=== PATIENT | female | born 1990 | race Caucasian/White ===

== ENCOUNTER 2016-04-24 11:10 | Emergency (ER) | payer OTHER, MEDICAID ==
[~2016-04-24] VITALS: Ht 154.9 cm; Wt 120.0 kg
[~2016-04-24 11:10] MED LIST: PROT40TA PO; [UNRECOGNIZED DRUG - OTHER] PO
[2016-04-24 11:12] VITALS: BP 170/96; PULSE 90; RESP 20; TEMP 98.6; O2SAT 94
--- NOTE | 2016-04-24 12:59 | PD ---
HPI Chief Complaint: GI Complaint Time Seen by Provider: 12:59 Travel History International Travel<30 days: No Contact w/Intl Traveler<30days: No Traveled to known affect area: No History of Present Illness HPI 26 year-old female history of PCO S presents to emergency department for evaluation of abdominal pain. States that it is epigastric in nature. It has been going on for a week. She has been nauseous at times without vomiting. She has also had some diarrhea. Denies any fever or chills. No chest tightness. No difficulty breathing. States her last menstrual cycle is unknown due to irregular menses. She has no other symptoms to report. PFSH Past Medical History Anemia: Yes Asthma: Yes Blood Disorders: No Heart Rhythm Problems: No Cancer: No Cardiovascular Problems: No High Cholesterol: Yes Chemotherapy: No Chest Pain: No Congestive Heart Failure: No COPD: No Cerebrovascular Accident: No Diabetes: Yes Diminished Hearing: No Endocrine: No Gastrointestinal Disorders: Yes (gallbladder removed 2007) GERD: Yes Genitourinary: No Headaches: Yes Hypertension: No Implanted Vascular Access Dvce: No Musculoskeletal: No Neurologic: No Psychiatric: No Reproductive: No Respiratory: Yes (ASTHMA) Myocardial Infarction: No Pneumonia: Yes (?) Radiation Therapy: No Renal Failure: No Thyroid Disease: No Ulcer: No LMP: 02/02/16 HX PCOS : 3 Para: 3 Tubal Ligation: Yes Past Surgical History Section: Yes (X 3) Cholecystectomy: Yes Tonsillectomy: Yes Other Surgery: Yes (two c-sections, gallbladder, tonsils) Social History Alcohol Use: No Tobacco Use: No Substance Use: No Allergies-Medications (Allergen,Severity, Reaction): Coded Allergies: Aspirin (Verified Allergy, Severe, 04/24/16) itching Reported Meds & Prescriptions Reported Meds & Active Scripts Active Protonix (Pantoprazole Sodium) 40 Mg Tab 40 Mg PO DAILY 30 Days Reported [enepresse] 1 Tab PO DAILY Review of Systems Except as stated in HPI: all other systems reviewed are Neg Physical Exam Narrative GENERAL: Obese female patient, ambulatory no acute distress SKIN: Warm and dry. HEAD: Normocephalic. Atraumatic EYES: No scleral icterus. No injection or drainage. NECK: Supple, trachea midline. No JVD or lymphadenopathy. CARDIOVASCULAR: Regular rate and rhythm without murmurs, gallops, or rubs. RESPIRATORY: Breath sounds diminished, likely due to girth, equal bilaterally. No accessory muscle use. GASTROINTESTINAL: Abdomen soft, non-tender, nondistended. MUSCULOSKELETAL: No cyanosis, or edema. BACK: Nontender without obvious deformity. No CVA tenderness. Data Data Last Documented VS Vital Signs Date Time Temp Pulse Resp B/P Pulse Ox O2 Delivery O2 Flow Rate FiO2 04/24/16 11:12 98.6 90 20 170/96 94 Room Air Orders Beta Hcg (Quant/Titer) (04/24/16 12:58) Complete Blood Count With Diff (04/24/16 12:58) Comprehensive Metabolic Panel (04/24/16 12:58) Lipase (04/24/16 12:58) Prothrombin Time / Inr (Pt) (04/24/16 12:58) Act Partial Throm Time (Ptt) (04/24/16 12:58) Urinalysis - C+S If Indicated (04/24/16 12:58) Labs Laboratory Tests Test 04/24/16 04/24/16 13:01 13:19 Urine Color YELLOW Urine Turbidity HAZY Urine pH 6.0 Urine Specific [place] 1.024 Urine Protein TRACE mg/dL Urine Glucose (UA) NEG mg/dL Urine Ketones NEG mg/dL Urine Occult Blood MOD Urine Nitrite NEG Urine Bilirubin NEG Urine Urobilinogen LESS THAN 2.0 MG/DL Urine Leukocyte Esterase MOD Urine RBC 47 /hpf Urine WBC 4 /hpf Urine Squamous Epithelial 5 /hpf Cells Urine Mucus FEW /lpf Microscopic Urinalysis Comment CULT NOT INDICATED White Blood Count 13.7 TH/MM3 Red Blood Count 4.52 MIL/MM3 Hemoglobin 13.5 GM/DL Hematocrit 39.5 % Mean Corpuscular Volume 87.4 FL Mean Corpuscular Hemoglobin 29.9 PG Mean Corpuscular Hemoglobin 34.1 % Concent Red Cell Distribution Width 13.7 % Platelet Count 320 TH/MM3 Mean Platelet Volume 7.6 FL Neutrophils (%) (Auto) 76.9 % Lymphocytes (%) (Auto) 18.8 % Monocytes (%) (Auto) 3.0 % Eosinophils (%) (Auto) 0.2 % Basophils (%) (Auto) 1.1 % Neutrophils # (Auto) 10.5 TH/MM3 Lymphocytes # (Auto) 2.6 TH/MM3 Monocytes # (Auto) 0.4 TH/MM3 Eosinophils # (Auto) 0.0 TH/MM3 Basophils # (Auto) 0.2 TH/MM3 CBC Comment DIFF FINAL Differential Comment Prothrombin Time 10.6 SEC Prothromb Time International 1.0 RATIO Ratio Activated Partial 28.2 SEC Thromboplast Time Sodium Level 140 MEQ/L Potassium Level 4.0 MEQ/L Chloride Level 108 MEQ/L Carbon Dioxide Level 21.3 MEQ/L Anion Gap 11 MEQ/L Blood Urea Nitrogen 8 MG/DL Creatinine 0.81 MG/DL Estimat Glomerular Filtration 84 ML/MIN Rate Random Glucose 92 MG/DL Calcium Level 8.6 MG/DL Total Bilirubin 0.3 MG/DL Aspartate Amino Transf 17 U/L (AST/SGOT) Alanine Aminotransferase 30 U/L (ALT/SGPT) Alkaline Phosphatase 101 U/L Total Protein 8.3 GM/DL Albumin 3.8 GM/DL Lipase 96 U/L Human Chorionic Gonadotropin, LESS THAN 1 Quant MIU/ML MDM Medical Decision Making Medical Screen Exam Complete: Yes Emergency Medical Condition: Yes Medical Record Reviewed: Yes Differential Diagnosis Gastritis versus gastroenteritis versus viral syndrome versus indigestion Narrative Course 26 year-old female presents to emergency department for evaluation. Workup was initiated in triage. Once a medical bed becomes available, patient will be transferred and care seen by that provider. Laboratory Tests Test 04/24/16 04/24/16 13:01 13:19 Urine Color YELLOW Urine Turbidity HAZY Urine pH 6.0 Urine Specific [place] 1.024 Urine Protein TRACE mg/dL Urine Glucose (UA) NEG mg/dL Urine Ketones NEG mg/dL Urine Occult Blood MOD Urine Nitrite NEG Urine Bilirubin NEG Urine Urobilinogen LESS THAN 2.0 MG/DL Urine Leukocyte Esterase MOD Urine RBC 47 /hpf Urine WBC 4 /hpf Urine Squamous Epithelial 5 /hpf Cells Urine Mucus FEW /lpf Microscopic Urinalysis Comment CULT NOT INDICATED White Blood Count 13.7 TH/MM3 Red Blood Count 4.52 MIL/MM3 Hemoglobin 13.5 GM/DL Hematocrit 39.5 % Mean Corpuscular Volume 87.4 FL Mean Corpuscular Hemoglobin 29.9 PG Mean Corpuscular Hemoglobin 34.1 % Concent Red Cell Distribution Width 13.7 % Platelet Count 320 TH/MM3 Mean Platelet Volume 7.6 FL Neutrophils (%) (Auto) 76.9 % Lymphocytes (%) (Auto) 18.8 % Monocytes (%) (Auto) 3.0 % Eosinophils (%) (Auto) 0.2 % Basophils (%) (Auto) 1.1 % Neutrophils # (Auto) 10.5 TH/MM3 Lymphocytes # (Auto) 2.6 TH/MM3 Monocytes # (Auto) 0.4 TH/MM3 Eosinophils # (Auto) 0.0 TH/MM3 Basophils # (Auto) 0.2 TH/MM3 CBC Comment DIFF FINAL Differential Comment Prothrombin Time 10.6 SEC Prothromb Time International 1.0 RATIO Ratio Activated Partial 28.2 SEC Thromboplast Time Sodium Level 140 MEQ/L Potassium Level 4.0 MEQ/L Chloride Level 108 MEQ/L Carbon Dioxide Level 21.3 MEQ/L Anion Gap 11 MEQ/L Blood Urea Nitrogen 8 MG/DL Creatinine 0.81 MG/DL Estimat Glomerular Filtration 84 ML/MIN Rate Random Glucose 92 MG/DL Calcium Level 8.6 MG/DL Total Bilirubin 0.3 MG/DL Aspartate Amino Transf 17 U/L (AST/SGOT) Alanine Aminotransferase 30 U/L (ALT/SGPT) Alkaline Phosphatase 101 U/L Total Protein 8.3 GM/DL Albumin 3.8 GM/DL Lipase 96 U/L Human Chorionic Gonadotropin, LESS THAN 1 Quant MIU/ML CBC is a mild leukocytosis 13.7. CMP is without acute concern. Urinalysis does have moderate occult blood and 47 RBC. Patient states that she "always has blood in her urine and has been seen by urology. Patient is encouraged to avoid acidic foods. She is also encouraged follow-up with primary 5. She agrees to return immediately with any acute worsening of symptoms. H[facility]pt Point of Care Internal Pos. & Neg. Controls: Passed Fecal Specimen Occult Blood: Negative Diagnosis Primary Impression: Gastritis Qualified Code: K29.00 - Acute gastritis without hemorrhage, unspecified gastritis type Additional Impressions: Anxiety Hematuria Referrals: Primary Care Physician Patient Instructions: Diet for Stomach Ulcers and Gastritis (ED), Gastritis (ED ), General Instructions Additional Instructions: Follow-up with a primary care provider Take the medication that you have for indigestion Avoid abrasive and acidic foods Return immediately to the emergency department with any acute worsening of symptoms Med/Other Pt SpecificInfo: No Change to Meds Disposition: 01 DISCHARGE HOME Condition: Stable AnnRhonda davis TREVON Apr 24, 2016 12:59
[2016-04-24 13:29] LABS: AUTOMATED NEUTROPHIL # 10.5 TH/MM3 (1.8-7.7); BASOPHIL # 0.2 TH/MM3 (0-0.2); BASOPHIL % 1.1 % (0.0-2.0); EOSINOPHIL % 0.2 % (0.0-4.0); HEMATOCRIT 39.5 % (35.0-46.0); HEMO FLAGS DIFF FINAL; LYMPH % 18.8 % (9.0-44.0); LYMPHOCYTE # 2.6 TH/MM3 (1.0-4.8); MEAN CELL VOLUME 87.4 FL (80.0-100.0); MEAN CORPUSCULAR HEMOGLOBIN 29.9 PG (27.0-34.0); MEAN CORPUSCULAR HGB CONC 34.1 % (32.0-36.0); NEUT % 76.9 % (16.0-70.0); PLATELET COUNT 320 TH/MM3 (150-450); RED BLOOD COUNT 4.52 MIL/MM3 (4.00-5.30); RED CELL DISTRIBUTION WIDTH 13.7 % (11.6-17.2); WHITE BLOOD COUNT 13.7 TH/MM3 (4.0-11.0)
[2016-04-24 13:32] LABS: BLOOD, URINE MOD (NEG); COMMENT (UR) CULT NOT INDICATED; CULTURE IF INDICATED CULT NOT INDICATED; GLUCOSE,URINE NEG (NEG); KETONE, URINE NEG (NEG); MUCUS URINE FEW /lpf (OCC); NITRITE,URINE NEG (NEG); SQUAMOUS EPITHELIAL CELL URINE 5 /hpf (0-5); URINE COLOR YELLOW (YELLW/STRAW)
[2016-04-24 13:41] LABS: APTT (PATIENT) 28.2 SEC (24.3-30.1); PROTHROMBIN TIME - PATIENT 10.6 SEC (9.8-11.6)
[2016-04-24 13:45] LABS: ANION GAP 11 MEQ/L (5-15); AST (GOT) 17 U/L (15-37); BICARBONATE 21.3 MEQ/L (21.0-32.0); BLOOD UREA NITROGEN 8 MG/DL (7-18); CHLORIDE 108 MEQ/L (98-107); GLOMERULAR FILTRATION RATE 84 ML/MIN (>89); SODIUM (NA) 140 MEQ/L (136-145)
[2016-04-24 13:50] LABS: ALKALINE PHOSPHATASE 101 U/L (45-117); ALT (GPT) 30 U/L (10-53); BETA HCG QUANT LESS THAN 1 MIU/ML (0-5); TOTAL BILIRUBIN ADULT 0.3 MG/DL (0.2-1.0)
== END 2016-04-24 14:27 | disposition home or self-care (01) ==
LOC: NETRI 11:10
DX: K29.70 Gastritis, unspecified, without bleeding (principal); R31.9 Hematuria, unspecified; F41.9 Anxiety disorder, unspecified; D64.9 Anemia, unspecified; J45.909 Unspecified asthma, uncomplicated; E78.00 Pure hypercholesterolemia, unspecified; E11.8 Type 2 diabetes mellitus with unspecified complications
CPT/HCPCS: 80053; 81001; 83690; 84702; 85025; 85610; 85730; 99283